=== PATIENT | female | born 1980 | race Caucasian/White ===

== ENCOUNTER → 2017-01-10 | Outpatient (CLI) | payer OTHER ==
[~2017-01-10] MED LIST: ALDACTONE100 MG PO; COLACE 100MG C100 MG PO; ESCITALOPRAM OX20 MG PO; IBUPROFEN800 MG PO; LIORESAL TAB 1010 MG PO; NORCO 5-325 TA1 EACH PO; SINGULAIR10 MG PO; ZANTAC 150 MG150 MG PO
[2017-01-10 09:28] LABS: HEMOGLOBIN 13.3 gm/dl (12.3-15.3); RED BLOOD COUNT 4.13 M/UL (4.00-5.10); WHITE BLOOD COUNT 6.2 K/UL (4.5-11.0)
== END ==
LOC: OPSV2 08:00
PROVIDERS: Obstetrics & Gynecology
DX: Z01.812 Encounter for preprocedural laboratory examination (principal); R10.2 Pelvic and perineal pain
CPT/HCPCS: 36415; 81001; 85025

== ENCOUNTER → 2017-01-13 | Day surgery (SDC) | payer OTHER ==
[~2017-01-13] VITALS: Ht 167.6 cm; Wt 99.3 kg
== END | disposition home or self-care (01) ==
LOC: OR 10:08
PROVIDERS: Obstetrics & Gynecology
PROC: 0UB24ZZ Excision of Bilateral Ovaries, Percutaneous Endoscopic Approach (ICD-10-PCS; principal; 2017-01-13 11:30)
PROC: 0UB98ZZ Excision of Uterus, Via Natural or Artificial Opening Endoscopic (ICD-10-PCS; 2017-01-13 11:30)
PROC: 3E1P78Z Irrigation of Female Reproductive using Irrigating Substance, Via Natural or Artificial Opening (ICD-10-PCS; 2017-01-13 11:30)
DX: N83.201 Unspecified ovarian cyst, right side (principal); N83.8 Other noninflammatory disorders of ovary, fallopian tube and broad ligament; N84.0 Polyp of corpus uteri; Z79.1 Long term (current) use of non-steroidal anti-inflammatories (NSAID); Z79.899 Other long term (current) drug therapy
CPT/HCPCS: 84703; J1100; J2250; J2405; J2710; J2795; J3010; J7120; Q9968